=== PATIENT | male | born 1955 | race Caucasian/White ===

== ENCOUNTER 2024-07-06 07:23 | Outpatient (CLI) | payer MEDICARE, MEDICAID | END 2024-07-06 23:59 | disposition home or self-care (01) | LOC: MRI02 07:23 | PROVIDERS: ATTEND Physician Assistant Surgical | DX: M19.012 Primary osteoarthritis, left shoulder (principal); M19.011 Primary osteoarthritis, right shoulder; M25.511 Pain in right shoulder; M75.41 Impingement syndrome of right shoulder | CPT/HCPCS: 73221 ==